=== PATIENT | male | born 1980 | race Caucasian/White ===

== ENCOUNTER → 2018-07-30 | Outpatient (REF) | payer OTHER ==
[2018-07-30 12:50] LABS: ALBUMIN 4.7 GM/DL (3.2-5.2); ALT/SGPT 24 U/L (12-78); BILIRUBIN,TOTAL 0.6 MG/DL (0.2-1.0); BLOOD UREA NITROGEN 14 MG/DL (7-18); CALCIUM LEVEL 9.4 MG/DL (8.5-10.1); CARBON DIOXIDE LEVEL 27 MEQ/L (21-32); CHLORIDE LEVEL 107 MEQ/L (98-107); CHOLESTEROL LEVEL 201 MG/DL (<200); CHOLESTEROL RISK RATIO 3.792 (<5); CREATININE FOR GFR 1.18 MG/DL (0.70-1.30); GLOMERULAR FILTRATION RATE > 60.0 (>60); GLUCOSE, FASTING 92 MG/DL (70-100); HDL CHOLESTEROL 53 MG/DL (>40); LDL CHOLESTEROL 133 MG/DL (<100); NON-HDL-C 148 MG/DL; POTASSIUM SERUM 4.1 MEQ/L (3.5-5.1); SODIUM LEVEL 141 MEQ/L (136-145); TOTAL PROTEIN 7.1 GM/DL (6.4-8.2); TRIGLYCERIDES LEVEL 77 MG/DL (<150)
== END ==
LOC: M SFHCPLAZ 09:56
PROVIDERS: ATTEND Family Medicine
DX: Z13.1 Encounter for screening for diabetes mellitus (principal); Z13.220 Encounter for screening for lipoid disorders

== ENCOUNTER 2022-05-18 18:50 | Emergency (ER) | payer OTHER ==
[~2022-05-18] VITALS: Ht 180.3 cm; Wt 87.3 kg
[2022-05-18 18:52] VITALS: BP 117/79
[2022-05-18] MEDS ORDERED: IBUPROFEN 800 MG TAB PO ONE (19:40)
== END 2022-05-18 21:40 | disposition home or self-care (01) ==
LOC: M ED 18:50
DX: S50.11XA Contusion of right forearm, initial encounter (principal); V00.131A Fall from skateboard, initial encounter; Y92.89 Other specified places as the place of occurrence of the external cause; Y93.51 Activity, roller skating (inline) and skateboarding; Y99.8 Other external cause status; Z87.891 Personal history of nicotine dependence